=== PATIENT | male | born 1950 | race Caucasian/White ===

== ENCOUNTER 2020-12-08 06:36 | Day surgery (SDC) | payer MEDICARE, OTHER ==
[~2020-12-08] VITALS: Ht 165.1 cm; Wt 90.7 kg
[2020-12-08] VITALS (12 sets, daily range): BP systolic 109–144; BP diastolic 62–75; PULSE 54–65; TEMP 98.6
[2020-12-08 08:08] LABS: HEMATOCRIT 44.1 % (42.0-52.0); HEMOGLOBIN 15.5 g/dl (13.5-18.0); MEAN CELL VOLUME 85 fl (80.0-100.0); MEAN CORPUSCULAR HEMOGLOBIN 30 pg (27.0-31.0); MEAN CORPUSCULAR HGB CONC 35 g/dl (33.0-37.0); MEAN PLATELET VOLUME 10.3 fl (7.4-10.4); PLATELET COUNT 168 K/mm3 (130-400); REDCELL DISTRIBUTION WIDTH-CV 12.2 % (11.5-14.5)
[2020-12-08] MEDS ORDERED: ASPIRIN 81M81 MG/TA2 PO (08:10)
[2020-12-08] MEDS ORDERED: LASIX 20MG TABL20 MG PO (08:11)
[2020-12-08] MEDS ORDERED: K-DUR 10 MEQ T10 MEQ PO (08:13)
[2020-12-08 08:15] LABS: PROTHROMBIN TIME 11.2 SECONDS (9.7-12.8)
[2020-12-08] MEDS ORDERED: PROSCAR 5MG5 MG PO (08:15)
[2020-12-08] MEDS ORDERED: SYNTHROID0.1 MG/TAB PO (08:15)
[2020-12-08] MEDS ORDERED: OSTEO-BI-FLEX 21 TAB PO (08:16)
[2020-12-08] MEDS ORDERED: CENTRUM1 TA1 PO (08:16)
[2020-12-08 08:17] LABS: PARTIAL THROMBOPLASTIN TIME 30.7 SECONDS (26.0-37.0)
[2020-12-08] MEDS ORDERED: CRESTOR20 MG PO (08:17)
[2020-12-08 08:22] LABS: CALCIUM 9.4 mg/dL (8.4-10.2); CREATININE, serum 1.11 mg/dL (0.72-1.25); POTASSIUM 3.9 mmol/L (3.5-4.5)
--- NOTE | 2020-12-08 09:09 | NUR ---
SEE MERGE DOCUMENTATION FOR MEDICATION ADMINISTRATION AND INTRA/POST PROCEDURE SEDATION ASSESSMENTS.
[2020-12-08] MEDS ORDERED: TOPROL XL 25MG25 MG PO (11:22)
--- NOTE | 2020-12-08 13:00 | NUR ---
Discharge instructions given to pt.Pt verbalizes understanding.INT removed,catheter tip intact.all air removed from band in 2 ml incriments.Dressing of gauze and coban applied,no bleeding observed at site.Pt escorted out via wheelchair by this nurse.
== END 2020-12-08 15:51 ==
LOC: COL.CAR 06:36
PROVIDERS: Internal Medicine Cardiovascular Disease
DX: R94.39 Abnormal result of other cardiovascular function study (principal); I48.0 Paroxysmal atrial fibrillation; E78.49 Other hyperlipidemia; R60.0 Localized edema; I77.819 Aortic ectasia, unspecified site
CPT/HCPCS: J1644; J2250; J3010; Q9967